=== PATIENT | female | born 1995 | race Caucasian/White ===

== ENCOUNTER 2017-10-02 17:22 | Emergency (ER) | payer BC ==
[2017-10-02] MEDS ORDERED: NS 0.9% 1000 ML* 1,000 ML IV ONE (18:16)
--- NOTE | 2017-10-02 18:17 | UC ---
Abdominal Pain Female HPI - HPI Summary HPI Summary: This is lucia Rahman documenting for Timur Leggett MD. This patient is a 22 year old F presenting to [facility] with a chief complaint of central, upper abd pain that began 4 days ago. The patient rates the pain 5/10 in severity. Symptoms aggravated by nothing. Symptoms alleviated by nothing. Patient reports headache, dizziness, feeling jittery, and nausea. Patient denies diarrhea. She reports a history of abdominal issues, including median arcuate ligament syndrome. The patient reports that pain being lower and lasting longer than her chronic pain. Allergies reviewed. Medications reviewed. - History of Current Complaint Chief Complaint: UCAbdominalPain Stated Complaint: ABDOMINAL COMPLAINT Time Seen by Provider: 10/02/17 18:01 Hx Obtained From: Patient Hx Last Menstrual Period: on control Onset/Duration: Sudden Onset, Lasting Days, Still Present Timing: Constant Pain Intensity: 5 Pain Scale Used: 0-10 Numeric Location: Epigastric Radiates: No Aggravating Factor(s): Nothing Alleviating Factor(s): Nothing Associated Signs and Symptoms: Positive: Other: - Positive headache, dizziness, feeling jittery, and nausea. Negative diarrhea Allergies/Adverse Reactions: Allergies Allergy/AdvReac Type Severity Reaction Status Date / Time No Known Allergies Allergy Verified 10/02/17 17:38 Home Medications: Home Medications Albuterol HFA INHALER* [Ventolin HFA Inhaler*] 2 puff INH Q4H PRN 10/02/17 [ History Confirmed 10/02/17] Cyproheptadine HCl 4 mg PO DAILY WITH MEAL 10/02/17 [History Confirmed 10/02/17] Fluticasone HFA 220 mcg(NF) [Flovent HFA 220 Mcg(NF)] 1 puff INH BID 10/02/17 [ History Confirmed 10/02/17] Lipase/Protease/Amylase [Zenpep Dr 25,000 Unit Capsule] 1 mg PO DAILY WITH MEAL 10/02/17 [History Confirmed 10/02/17] Montelukast Sodium 10 mg PO DAILY WITH MEAL 10/02/17 [History Confirmed 10/02/17 ] Norethindrone-E.estradiol-Iron [Blisovi Fe 04/06 1-20 mg-Mcg] 1 tab PO DAILY WITH MEAL 10/02/17 [History Confirmed 10/02/17] PMH/Surg Hx/FS Hx/Imm Hx Previously Healthy: No Endocrine History: Other Other Endocrine History: Negative diabetes GI/ History: Other - Median arcuate ligament syndrome Other GI/ History: . 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 - Family History Known Family History: Negative: Cardiac Disease, Diabetes - Social History Occupation: Student Lives: Alone Alcohol Use: None Substance Use Type: None Smoking Status (MU): Never Smoked Tobacco Review of Systems Gastrointestinal: Abdominal Pain, Nausea, Other - Negative diarrhea Neurological: Headache, Other - Positive dizziness and "feeling jittery" All Other Systems Reviewed And Are Negative: Yes Physical Exam - Summary Physical Exam Summary: General: well-appearing, no pain distress Skin: warm, color reflects adequate perfusion, dry Head: normal Eyes: EOMI, IBAN ENT: normal, oral mucosa moist Neck: supple, nontender Respiratory: CTA, breath sounds present Cardiovascular: RRR Abdomen: soft, tenderness in the epigastrium Bowel: positive bowel sounds Musculoskeletal: normal, strength/ROM intact Neurological: sensory/motor intact, A&O x3 Psychological: affect/mood appropriate Triage Information Reviewed: Yes Vital Signs: Initial Vital Signs Temp 99.3 F 10/02/17 17:32 Pulse 77 10/02/17 17:32 Resp 20 10/02/17 17:32 BP 148/86 10/02/17 17:32 Pulse Ox 100 10/02/17 17:32 Vital Signs Reviewed: Yes Abd Pain Female Course/Dx - Course Course Of Treatment: IMPROVED IN CLINIC AFTER NS 1 LITER. RX CARAFATE. F/U PMD ; RECHECK SOONER IF WORSE. - Differential Dx/Diagnosis Provider Diagnoses: EPIGASTRIC PAIN. DEHYDRATION Discharge - Sign-Out/Discharge Documenting (check all that apply): Patient Departure - Discharge Plan Condition: Stable Disposition: HOME Prescriptions: Sucralfate TAB* [Carafate*] 1 gm PO QID #120 tab Patient Education Materials: Dehydration (ED), Acute Abdominal Pain (ED) Referrals: Clair Cabrera MD [Primary Care Provider] - Additional Instructions: FOLLOW UP WITH YOUR DOCTOR. GET RECHECKED FOR ANY WORSENING OF YOUR CONDITION OR QUESTIONS OR CONCERNS. - Billing Disposition and Condition Condition: STABLE Disposition: Home
[2017-10-02 18:50] VITALS: BP 119/73
[2017-10-03 11:27] LABS: ABS Basophils 0 10^3/ul (0-0.2); ABS Eosinophils 0 10^3/ul (0-0.6); ABS Lymphocytes 1.1 10^3/ul (1.0-4.8); ABS Monocytes 0.5 10^3/ul (0-0.8); ABS Neutrophils 3.7 10^3/ul (1.5-7.7); ABS Nucleated RBC 0 10^3/ul; Eosinophil % 0.9 % (0-6); Hematocrit 41 % (35-47); Hemoglobin 14.2 g/dl (12.0-16.0); Lymphocyte % 21.3 % (25-47); Mean Corpuscular HGB Conc 35 g/dl (31-36); Mean Corpuscular Hemoglobin 31 pg (27-31); Mean Corpuscular Volume 88 fL (80-97); Mean Platelet Volume 7.8 um3 (7.4-10.4); Nucleated Red Blood Cells % 0.2; Platelet Count 351 10^3/ul (150-450); Red Blood Count 4.64 10^6/ul (4.00-5.40); Red Cell Distribution Width 13 % (10.5-15); White Blood Count 5.3 10^3/ul (3.5-10.8)
[2017-10-03 12:01] LABS: EGFR Non-African American 123.8 (>60)
--- NOTE | 2017-10-03 12:55 | UC ---
- Progress Note Progress Note: call from lab - specimen hemolyzed. Unable to test potassium and AST reviewed chart reviewed other labs - wnl Do not need to call pt back for re-draw Vick 10/03/2017 Discharge - Sign-Out/Discharge Documenting (check all that apply): Post-Discharge Follow Up - Discharge Plan Condition: Stable Disposition: HOME Prescriptions: Sucralfate TAB* [Carafate*] 1 gm PO QID #120 tab Patient Education Materials: Dehydration (ED), Acute Abdominal Pain (ED) Referrals: Clair Cabrera MD [Primary Care Provider] - Additional Instructions: FOLLOW UP WITH YOUR DOCTOR. GET RECHECKED FOR ANY WORSENING OF YOUR CONDITION OR QUESTIONS OR CONCERNS. - Billing Disposition and Condition Condition: STABLE Disposition: Home
--- NOTE | 2017-10-03 17:35 | UC ---
- Progress Note Progress Note: CBC, CMP, CRP - reviewed and non concerning no change irinaj 10/03/2017 Discharge - Sign-Out/Discharge Documenting (check all that apply): Post-Discharge Follow Up - Discharge Plan Condition: Stable Disposition: HOME Prescriptions: Sucralfate TAB* [Carafate*] 1 gm PO QID #120 tab Patient Education Materials: Dehydration (ED), Acute Abdominal Pain (ED) Referrals: Clair Cabrera MD [Primary Care Provider] - Additional Instructions: FOLLOW UP WITH YOUR DOCTOR. GET RECHECKED FOR ANY WORSENING OF YOUR CONDITION OR QUESTIONS OR CONCERNS. - Billing Disposition and Condition Condition: STABLE Disposition: Home
== END 2017-10-02 21:05 | disposition home or self-care (01) ==
LOC: UCEAST 17:22
DX: R10.13 Epigastric pain (principal); E86.0 Dehydration; R51 Headache; R42 Dizziness and giddiness
CPT/HCPCS: 36415; 80053; 81003; 83690; 84702; 85025; 86140; 96360; 99212; G0463

== ENCOUNTER 2017-11-15 20:09 | Emergency (ER) | payer BC ==
[2017-11-15] MEDS ORDERED: LORazepam TAB(*) 1 MG PO ONE (21:47)
--- NOTE | 2017-11-15 21:54 | ED ---
Respiratory - HPI Summary HPI Summary: This patient is a 22 year old F presenting to [facility] accompanied by a friend with a chief complaint of nonproductive cough since this morning. The patient notes that it feels like she cant take deep enough breaths and like her chest is tightness. The patient rates the pain 4/10 in severity. Symptoms aggravated by nothing. Symptoms alleviated by nothing. Patient reports wheezing and SOB. Patient denies fever, chills, nausea, or vomiting. Patient notes that she has used her inhaler x4 today but it has not alleviated her symptoms. The patient notes that these symptoms match her typically asthma symptoms. Patient has adult -onset asthma. Patient is not a smoker. Patient denies any hx of anxiety. Patient denies any chance of . - History of Current Complaint Chief Complaint: EDShortnessOfBreath Stated Complaint: SOB/ASTHMA Time Seen by Provider: 11/15/17 21:39 Hx Obtained From: Patient Onset/Duration: Sudden Onset, Lasting Hours, Still Present Timing: Constant Initial Severity: Mild Current Severity: Mild Pain Intensity: 4 Character: Wheezing, Cough (Nonproductive) Sputum Amount: None Aggravating Factor(s): Nothing Alleviating Factor(s): Nothing Associated Signs and Symptoms: SOB, Wheezing - Allergy/Home Medications Allergies/Adverse Reactions: Allergies Allergy/AdvReac Type Severity Reaction Status Date / Time No Known Allergies Allergy Verified 11/15/17 20:24 PMH/Surg Hx/FS Hx/Imm Hx Endocrine/Hematology History: Denies: Hx Diabetes, Hx Thyroid Disease Cardiovascular History: Denies: Hx Hypertension Respiratory History: Reports: Hx Asthma Denies: Hx Chronic Obstructive Pulmonary Disease (COPD) GI History: Denies: Hx Ulcer Opthamlomology History: Denies: Hx Legally Blind EENT History: Denies: Hx Deafness - Surgical History Surgery Procedure, Year, and Place: abd surgery for MAL syndrome. 2014. feb 2017 Infectious Disease History: No Infectious Disease History: Denies: Hx Hepatitis, Hx Human Immunodeficiency Virus (HIV), History Other Infectious Disease, Traveled Outside the [place] in Last 30 Days - Family History Known Family History: Positive: Other - adult onset asthma Negative: Cardiac Disease, Diabetes - Social History Occupation: Student Alcohol Use: None Substance Use Type: Reports: None Smoking Status (MU): Never Smoked Tobacco Review of Systems Negative: Fever, Chills Negative: Epistaxis Positive: Shortness Of Breath - wheezing, Cough - nonproductive Negative: Vomiting Negative: Rash All Other Systems Reviewed And Are Negative: Yes Physical Exam - Summary Physical Exam Summary: Appearance: Well-appearing, Well-nourished, lying in bed comfortably Skin: Warm, dry, no obvious rash Eyes: sclera anicteric, no conjunctival pallor ENT: mucous membranes moist, pharynx appears normal Neck: Supple, nontender Respiratory: Clear to auscultation, no signs of respiratory distress, no wheezing Cardiovascular: Normal S1, S2. No murmurs. Normal distal pulses in tibial and radial bilaterally. Abdomen: Soft, nontender, normal active bowel sounds present Musculoskeletal: Normal, Strength/ROM Intact Neurological: A&Ox3, awake and alert, mentation is normal, speech is fluent and appropriate Psychiatric: affect is normal, does not appear anxious or depressed Triage Information Reviewed: Yes Vital Signs On Initial Exam: Initial Vitals Temp Pulse Resp BP Pulse Ox 98.4 F 105 20 126/79 100 11/15/17 20:22 11/15/17 20:22 11/15/17 20:22 11/15/17 20:22 11/15/17 20:22 Vital Signs Reviewed: Yes Diagnostics - Vital Signs Vital Signs Temp Pulse Resp BP Pulse Ox 11/15/17 20:22 98.4 F 105 20 126/79 100 - Laboratory Result Diagrams: 11/15/17 22:09 11/15/17 22:09 Lab Statement: Any lab studies that have been ordered have been reviewed, and results considered in the medical decision making process. - Radiology CXR Xray Interpretation: No Acute Changes - Impression: no acute disease Radiology Interpretation Completed By: ED Physician - Dr. Jiang, pending official report - EKG 22:56 Cardiac Rate: NL - at 73 bpm EKG Rhythm: Sinus Rhythm ST Segment: Normal Ectopy: None EKG Interpretation: NSR at 73 bpm, nml intervals, no ischemic changes Discharge - Discharge Plan Referrals: Clair Cabrera MD [Primary Care Provider] - - Attestation Statements Document Initiated by Scribe: Yes Documenting Scribe: Love Cox Provider For Whom Scribe is Documenting (Include Credential): Samir Jiang MD Scribe Attestation: Love Sauceda, scribed for Samir Jiang MD on 11/15/17 at 2300.
[2017-11-15 22:20] LABS: ABS Basophils 0 10^3/ul (0-0.2); ABS Eosinophils 0.1 10^3/ul (0-0.6); ABS Lymphocytes 1.1 10^3/ul (1.0-4.8); ABS Monocytes 0.6 10^3/ul (0-0.8); ABS Nucleated RBC 0 10^3/ul; Eosinophil % 1.9 % (0-6); Hematocrit 40 % (35-47); Hemoglobin 13.5 g/dl (12.0-16.0); Lymphocyte % 15.7 % (25-47); Mean Corpuscular HGB Conc 34 g/dl (31-36); Mean Corpuscular Hemoglobin 30 pg (27-31); Mean Corpuscular Volume 90 fL (80-97); Mean Platelet Volume 6.7 um3 (7.4-10.4); Nucleated Red Blood Cells % 0; Platelet Count 356 10^3/ul (150-450); Red Blood Count 4.51 10^6/ul (4.00-5.40); Red Cell Distribution Width 13 % (10.5-15); White Blood Count 6.9 10^3/ul (3.5-10.8)
[2017-11-15 22:38] LABS: EGFR Non-African American 111.1 (>60)
[2017-11-15] MEDS ORDERED: Benzonatate CAP* 100 MG PO ONE (23:59)
[2017-11-16 00:22] VITALS: BP 114/62
--- NOTE | 2017-11-16 09:50 | RAD ---
INDICATION: Shortness of breath. History of asthma. COMPARISON: No relevant prior exams available on the [facility] PACS for comparison. TECHNIQUE: Dual energy PA and routine lateral views of the chest were obtained. REPORT: Clear lungs and pleural spaces. Negative for pneumothorax. The heart, pulmonary vasculature, and mediastinal contours are unremarkable. Unremarkable osseous structures and soft tissue contours. IMPRESSION: #. No evidence for acute intrathoracic disease. R0
== END 2017-11-16 00:22 | disposition home or self-care (01) ==
LOC: ED 20:09
DX: R06.02 Shortness of breath (principal); R05 Cough; R06.2 Wheezing
CPT/HCPCS: 36415; 71046; 80053; 84484; 84702; 85025; 85379; 93005; 99283; A9270-GY

== ENCOUNTER 2018-06-28 07:43 | Emergency (ER) | payer BC ==
[2018-06-28] MEDS ORDERED: Famotidine IV* 10 MG/ML 2 ML (20 mg) IV SLOW PU ONE (08:26)
[2018-06-28] MEDS ORDERED: NS 0.9% 1000 ML** 1,000 ML IV ONE (08:26)
[2018-06-28] MEDS ORDERED: Ondansetron INJ* 2 MG/ML VIAL IV ONE (08:27)
[2018-06-28] MEDS ORDERED: Al Hydrox/Mg Hydrox/Simet LIQ* 30 ML UDC PO ONE (08:27)
[2018-06-28 08:49] LABS: ABS Basophils 0 10^3/ul (0-0.2); ABS Eosinophils 0 10^3/ul (0-0.6); ABS Lymphocytes 0.7 10^3/ul (1.0-4.8); ABS Monocytes 0.3 10^3/ul (0-0.8); ABS Neutrophils 6.4 10^3/ul (1.5-7.7); ABS Nucleated RBC 0 10^3/ul; Eosinophil % 0.2 %; Hematocrit 41 % (33-41); Hemoglobin 13.9 g/dL (12.0-16.0); Lymphocyte % 8.9 %; Mean Corpuscular HGB Conc 34 g/dL (31-36); Mean Corpuscular Hemoglobin 30 pg (27-31); Mean Corpuscular Volume 88 fL (80-97); Mean Platelet Volume 6.8 fL (7.4-10.4); Nucleated Red Blood Cells % 0; Platelet Count 343 10^3/uL (150-450); Red Cell Distribution Width 12 % (10.5-15); White Blood Count 7.4 10^3/uL (3.5-10.8)
[2018-06-28 09:09] LABS: Urine Appearance Clear; Urine Bacteria Absent (Absent); Urine Bilirubin Negative (Negative); Urine Blood 1+ (Negative); Urine Color Yellow; Urine Glucose Negative (Negative); Urine Ketones Negative (Negative); Urine Nitrite Negative (Negative); Urine Protein Negative (Negative); Urine Red Blood Cell Absent (Absent); Urine Specific Gravity 1.009 (1.010-1.030); Urine Squamous Epithelial Cell Present (Absent); Urine Urobilinogen Negative (Negative); Urine White Blood Cell Trace(0-5/hpf) (Absent)
[2018-06-28 09:12] LABS: ALT 13 U/L (7-52); AST 12 U/L (13-39); Albumin 4.5 g/dL (3.2-5.2); Albumin/Globulin Ratio 1.9 (1-3); Alkaline Phosphatase 39 U/L (34-104); Amylase 44 U/L (29-103); Anion Gap 6 mmol/L (2-11); BUN/Creatinine Ratio 20.8 (8-20); Blood Urea Nitrogen 15 mg/dL (6-24); CO2 Carbon Dioxide 26 mmol/L (22-32); Calcium 9.3 mg/dL (8.6-10.3); Chloride 107 mmol/L (101-111); EGFR African American 122.6 (>60); EGFR Non-African American 101.3 (>60); Globulin 2.4 g/dL (2-4); Glucose 110 mg/dL (70-100); Magnesium 1.8 mg/dL (1.9-2.7); Potassium 3.7 mmol/L (3.5-5.0); Sodium 139 mmol/L (135-145); Total Protein 6.9 g/dL (6.4-8.9)
[2018-06-28 09:19] LABS: HCG Pregnancy < 0.60 mIU/mL
[2018-06-28 09:37] LABS: C Reactive Protein < 1.00 mg/L (<8.01)
[2018-06-28] MEDS ORDERED: Metoclopramide IV* 5 MG/ML 2 ML VIAL IV ONE (10:15)
--- NOTE | 2018-06-28 10:19 | ED ---
Abdominal Pain/Female - HPI Summary HPI Summary: Patient is a 24-year-old female with a history of median arcuate ligament syndrome with 2 decompression surgeries in 2014 and 2017 present to the ED with midepigastric tenderness which is nonradiating. She states she has been on a PPI, omeprazole for approximately 1 week, but discontinue this medication as she can to feel worse. She discontinued this medication 3 days ago and continues to feel epigastric pain, nausea, vomiting. She states she has had issues with a PPI in the past when trying to discontinue the medication with side effects being nausea, vomiting and epigastric pain for short time. She has had multiple episodes of emesis, endorses dehydration and endorses persistent nausea and epigastric pain despite Zofran and Maalox. She states the Maalox helps the most but the pain returns after this medication wears off. She denies any fevers, sweats, chills. Denies any diffuse body aches. Vital signs are stable on arrival. She denies any hematemesis or melena. Denies any urinary symptoms or back pain. - History of Current Complaint Chief Complaint: EDAbdPain Stated Complaint: INTENSE ABD PAIN PER PT Time Seen by Provider: 06/28/18 08:00 Hx Obtained From: Patient Hx Last Menstrual Period: on control ?: No Onset/Duration: Sudden Onset Timing: Constant Severity Initially: Moderate Severity Currently: Moderate Pain Intensity: 7 Pain Scale Used: 0-10 Numeric Location: Epigastric Radiates: No Character: Burning, Cramping Aggravating Factor(s): Nothing Alleviating Factor(s): Nothing Associated Signs and Symptoms: Positive: Nausea. Negative: Diaphoresis, Constipation, Blood in Stool, Urinary Symptoms, Decreased Appetite, Vaginal Discharge, Vomiting, Diarrhea - Risk Factors Ectopic Risk Factor: Negative Ovarian Torsion Risk Factor: Negative Allergies/Adverse Reactions: Allergies Allergy/AdvReac Type Severity Reaction Status Date / Time No Known Allergies Allergy Verified 06/28/18 07:45 Home Medications: Home Medications Acarbose 25 mg PO DAILY WITH MEAL 06/28/18 [History Confirmed 06/28/18] Pantoprazole TAB * [Protonix TAB*] 40 mg PO DAILY 06/28/18 [History Confirmed ] PMH/Surg Hx/FS Hx/Imm Hx Previously Healthy: Yes Endocrine/Hematology History: Denies: Hx Diabetes, Hx Thyroid Disease Cardiovascular History: Denies: Hx Hypertension Respiratory History: Reports: Hx Asthma Denies: Hx Chronic Obstructive Pulmonary Disease (COPD) GI History: Denies: Hx Ulcer Sensory History: Denies: Hx Legally Blind, Hx Deafness Opthamlomology History: Denies: Hx Legally Blind - Surgical History Surgery Procedure, Year, and Place: [facility] surgery for MAL syndrome. 2014. feb 2017 - Immunization History Hx Pertussis Vaccination: No Immunizations Up to Date: Yes Infectious Disease History: No Infectious Disease History: Denies: Hx Hepatitis, Hx Human Immunodeficiency Virus (HIV), History Other Infectious Disease, Traveled Outside the [place] in Last 30 Days - Family History Known Family History: Positive: Other - adult onset asthma Negative: Cardiac Disease, Diabetes - Social History Occupation: Unemployed Lives: With Family Alcohol Use: None Hx Substance Use: No Substance Use Type: Reports: None Hx Tobacco Use: No Smoking Status (MU): Never Smoked Tobacco Review of Systems Constitutional: Negative Negative: Fever, Chills, Fatigue, Skin Diaphoresis Negative: Palpitations, Chest Pain Negative: Shortness Of Breath, Cough Positive: Abdominal Pain, Vomiting, Nausea. Negative: Diarrhea Genitourinary: Negative Positive: no symptoms reported, see HPI Negative: Arthralgia, Myalgia Skin: Negative Neurological: Negative All Other Systems Reviewed And Are Negative: Yes Physical Exam Triage Information Reviewed: Yes Vital Signs On Initial Exam: Initial Vitals Temp Pulse Resp BP Pulse Ox 97.6 F 100 16 142/93 100 06/28/18 07:45 06/28/18 07:45 06/28/18 07:45 06/28/18 07:45 06/28/18 07:45 Vital Signs Reviewed: Yes Appearance: Positive: Well-Appearing, Well-Nourished Skin: Positive: Warm, Skin Color Reflects Adequate Perfusion Head/Face: Positive: Normal Head/Face Inspection Eyes: Positive: EOMI, Conjunctiva Clear Neck: Positive: Supple, Nontender, No Lymphadenopathy Respiratory/Lung Sounds: Positive: Clear to Auscultation, Breath Sounds Present Cardiovascular: Positive: RRR, Pulses are Symmetrical in both Upper and Lower Extremities Abdomen Description: Positive: Other: - Tenderness at the epigastric region with no tenderness throughout otherwise Musculoskeletal: Positive: Normal, Strength/ROM Intact Neurological: Positive: Normal, Sensory/Motor Intact, Alert, Oriented to Person Place, Time, Speech Normal Psychiatric: Positive: Normal, Affect/Mood Appropriate Diagnostics - Vital Signs Vital Signs Temp Pulse Resp BP Pulse Ox 06/28/18 10:04 56 111/70 100 06/28/18 10:00 59 100 06/28/18 09:04 70 112/69 100 06/28/18 09:00 63 100 06/28/18 08:34 61 116/66 99 06/28/18 08:06 70 100 06/28/18 08:04 71 118/79 100 06/28/18 07:45 97.6 F 100 16 142/93 100 - Laboratory Lab Results: Lab Results 06/28/18 06/28/18 06/28/18 Range/Units 08:43 08:43 08:43 WBC 7.4 (3.5-10.8) 10^3/uL RBC 4.70 (3.70-4.87) 10^6 /uL Hgb 13.9 (12.0-16.0) g/dL Hct 41 (33-41) % MCV 88 (80-97) fL MCH 30 (27-31) pg MCHC 34 (31-36) g/dL RDW 12 (10.5-15) % Plt Count 343 (150-450) 10^3/uL MPV 6.8 L (7.4-10.4) fL Neut % (Auto) 86.9 % Lymph % (Auto) 8.9 % Bledsoe % (Auto) 3.7 % Eos % (Auto) 0.2 % Baso % (Auto) 0.3 % Absolute Neuts (auto) 6.4 (1.5-7.7) 10^3/ul Absolute Lymphs (auto) 0.7 L (1.0-4.8) 10^3/ul Absolute Monos (auto) 0.3 (0-0.8) 10^3/ul Absolute Eos (auto) 0 (0-0.6) 10^3/ul Absolute Basos (auto) 0 (0-0.2) 10^3/ul Absolute Nucleated RBC 0 10^3/ul Nucleated RBC % 0 Sodium 139 (135-145) mmol/L Potassium 3.7 (3.5-5.0) mmol/L Chloride 107 (101-111) mmol/L Carbon Dioxide 26 (22-32) mmol/L Anion Gap 6 (2-11) mmol/L BUN 15 (6-24) mg/dL Creatinine 0.72 (0.51-0.95) mg/dL Est GFR ( Amer) 122.6 (>60) Est GFR (Non-Af Amer) 101.3 (>60) BUN/Creatinine Ratio 20.8 H (8-20) Glucose 110 H (70-100) mg/dL Lactic Acid 0.9 (0.5-2.0) mmol/L Calcium 9.3 (8.6-10.3) mg/dL Magnesium 1.8 L (1.9-2.7) mg/dL Total Bilirubin 0.40 (0.2-1.0) mg/dL AST 12 L (13-39) U/L ALT 13 (7-52) U/L Alkaline Phosphatase 39 (34-104) U/L C-Reactive Protein < 1.00 (<8.01) mg/L Total Protein 6.9 (6.4-8.9) g/dL Albumin 4.5 (3.2-5.2) g/dL Globulin 2.4 (2-4) g/dL Albumin/Globulin Ratio 1.9 (1-3) Amylase 44 (29-103) U/L Lipase 11 (11.0-82.0) U/L Beta HCG, Quant < 0.60 mIU/mL Urine Color Urine Appearance Urine pH (5-9) Ur Specific [place] (1.010-1.030) Urine Protein (Negative) Urine Ketones (Negative) Urine Blood (Negative) Urine Nitrate (Negative) Urine Bilirubin (Negative) Urine Urobilinogen (Negative) Ur Leukocyte Esterase (Negative) Urine WBC (Auto) (Absent) Urine RBC (Auto) (Absent) Ur Squamous Epith Cells (Absent) Urine Bacteria (Absent) Urine Glucose (Negative) 06/28/18 Range/Units 08:45 WBC (3.5-10.8) 10^3/uL RBC (3.70-4.87) 10^6 /uL Hgb (12.0-16.0) g/dL Hct (33-41) % MCV (80-97) fL MCH (27-31) pg MCHC (31-36) g/dL RDW (10.5-15) % Plt Count (150-450) 10^3/uL MPV (7.4-10.4) fL Neut % (Auto) % Lymph % (Auto) % Bledsoe % (Auto) % Eos % (Auto) % Baso % (Auto) % Absolute Neuts (auto) (1.5-7.7) 10^3/ul Absolute Lymphs (auto) (1.0-4.8) 10^3/ul Absolute Monos (auto) (0-0.8) 10^3/ul Absolute Eos (auto) (0-0.6) 10^3/ul Absolute Basos (auto) (0-0.2) 10^3/ul Absolute Nucleated RBC 10^3/ul Nucleated RBC % Sodium (135-145) mmol/L Potassium (3.5-5.0) mmol/L Chloride (101-111) mmol/L Carbon Dioxide (22-32) mmol/L Anion Gap (2-11) mmol/L BUN (6-24) mg/dL Creatinine (0.51-0.95) mg/dL Est GFR ( Amer) (>60) Est GFR (Non-Af Amer) (>60) BUN/Creatinine Ratio (8-20) Glucose (70-100) mg/dL Lactic Acid (0.5-2.0) mmol/L Calcium (8.6-10.3) mg/dL Magnesium (1.9-2.7) mg/dL Total Bilirubin (0.2-1.0) mg/dL AST (13-39) U/L ALT (7-52) U/L Alkaline Phosphatase (34-104) U/L C-Reactive Protein (<8.01) mg/L Total Protein (6.4-8.9) g/dL Albumin (3.2-5.2) g/dL Globulin (2-4) g/dL Albumin/Globulin Ratio (1-3) Amylase (29-103) U/L Lipase (11.0-82.0) U/L Beta HCG, Quant mIU/mL Urine Color Yellow Urine Appearance Clear Urine pH 7.0 (5-9) Ur Specific [place] 1.009 L (1.010-1.030) Urine Protein Negative (Negative) Urine Ketones Negative (Negative) Urine Blood 1+ A (Negative) Urine Nitrate Negative (Negative) Urine Bilirubin Negative (Negative) Urine Urobilinogen Negative (Negative) Ur Leukocyte Esterase Negative (Negative) Urine WBC (Auto) Trace(0-5/hpf) (Absent) Urine RBC (Auto) Absent (Absent) Ur Squamous Epith Cells Present A (Absent) Urine Bacteria Absent (Absent) Urine Glucose Negative (Negative) Result Diagrams: 06/28/18 08:43 06/28/18 08:43 Lab Statement: Any lab studies that have been ordered have been reviewed, and results considered in the medical decision making process. Abdominal Pain Fem Course/Dx - Course Course Of Treatment: During the course of treatment, the patient's evaluated for midepigastric tenderness which is nonradiating. Associated with nausea, vomiting. She has had multiple episodes of emesis. On physical examination, patient appears dry with dry mucous membranes. Vital signs are stable. Lungs 58, RR. Severe tenderness to the epigastric region to light palpation. No right upper quadrant pain and Mejia sign is negative. Labs obtained are all WNL including a lipase and bilirubin. GB ultrasound obtained to rule out gallbladder pathology, this was read as negative. She is given 2 L fluids, Zofran, Reglan, famotidine and Maalox for symptom relief. She states this improved her symptoms somewhat, but 1 hour after dispension of medication, pain returned. She states Reglan helped the most and on giving this, she denies any nausea or vomiting at this time. She still endorses epigastric tenderness, although this is reduced and continues to remain intermittent. Discussed case with Dr. Farfan at 11:30 AM who suggests patient calling her surgeon for further direction of treatment. GB US obtained and is negative. Patient states she is okay for discharge at this time and is willing to go home to try omeprazole and Reglan for symptom control. Discussed with patient I am unsure if she is having symptoms of her median arcuate ligament syndrome or if she is having epigastric tenderness secondary to gastritis, ulcer, etc. patient is hemodynamically stable and has improved since arrival to the ED. - Diagnoses Differential Diagnosis: Positive: Gall Bladder Disease, Pancreatitis, Other - Epigastric tenderness, epigastric gastritis, gastritis, peptic ulcer, median arcuate ligament syndrome Provider Diagnoses: Epigastric pain Discharge - Sign-Out/Discharge Documenting (check all that apply): Patient Departure Patient Received Moderate/Deep Sedation with Procedure: No - Discharge Plan Condition: Stable Disposition: HOME Prescriptions: Metoclopramide TAB* [Reglan TAB*] 10 mg PO Q6H PRN #15 tab PRN Reason: Nausea Omeprazole 40 mg PO DAILY #30 capsule. Patient Education Materials: Omeprazole (By mouth), Epigastric Pain (ED), Diet for Stomach Ulcers and Gastritis (ED) Referrals: Clair Cabrera MD [Primary Care Provider] - Additional Instructions: Please call your doctor as soon as possible Reglan 10 mg up to 4 times daily for nausea and vomiting Eat low acidic meals Omeprazole 40 mg once daily until follow-up If you develop any constipation from Maalox use, you may use senna or MiraLAX [id number] - Billing Disposition and Condition Condition: STABLE Disposition: Home
[2018-06-28 12:24] VITALS: BP 115/58
== END 2018-06-28 12:23 | disposition home or self-care (01) ==
LOC: ED 07:43
DX: R10.13 Epigastric pain (principal); J45.909 Unspecified asthma, uncomplicated
CPT/HCPCS: 36415; 76705; 80053; 81003; 81015; 82150; 83605; 83690; 83735; 84702; 85025; 86140; 87086; 93005; 96361; 96374; 99285; A9270-GY; J2405; J2765